=== PATIENT | female | born 1935 | race Caucasian/White ===

== ENCOUNTER → 2018-04-20 | Day surgery (SDC) | payer MEDICARE, BC ==
[~2018-04-20] MED LIST: Lactated Ringers 1,000 ML IV SCH; Propofol 200 MG/20 ML SDV IV ONE
--- NOTE | 2018-04-20 10:39 | OR ---
DATE OF OPERATION: 04/20/2018 PREOPERATIVE DIAGNOSIS: GASTROESOPHAGEAL REFLUX DISEASE. POSTOPERATIVE DIAGNOSIS: GASTROESOPHAGEAL REFLUX DISEASE. SURGEON: Eliceo Colón MD PROCEDURE: EGD WITH BIOPSIES X2, DANYELL. 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 COMPLICATIONS: None. SPECIMEN: 1. Fundal biopsy x2. 2. Antral DANYELL. FINDINGS: 1. Full-length colonoscopy. 2. Chronic fundal gastritis without active inflammation. 3. Mild hiatal hernia with nonobstructing Schatzki's ring. No distal esophagitis. RECOMMENDATIONS: Ongoing medical therapy. INDICATIONS: The patient presented to my office with multiple concerns with one of them being reflux and the fact that she has lower chest burning at times. We elected to proceed with EGD. DESCRIPTION OF PROCEDURE: The patient was prepped and draped, placed in the left lateral decubitus position. A lubricated Olympus gastroscope was inserted over bit and advanced to cricopharyngeus area and easily intubated in the esophagus. The esophageal lining was benign in its entire course. The Z-line was crisp and sharp around 38 cm. There is a mild to maybe moderate hiatal hernia present with spontaneous reflux visualized. The Z-line is crisp and sharp. There was no distal esophagitis, stricturing, ulceration, or Coyle's changes. There is very early and mild nonobstructing Schatzki's ring present. The scope was easily advanced into the stomach through the pylorus and into the second portion of the duodenum. This and the duodenal bulb were completely benign. The scope was brought back into the stomach and retroflexed. The upper fundus and cardia were for the most part unremarkable. The patient's fundus has a chronic gastritis appearance without any active inflammation, ulceration, or erosions. Two biopsies of the fundus were taken. The rest of the distal fundus and antrum were completely unremarkable. CLOtest obtained, air was then suctioned, and scope removed without complication. LOS/NANETTE /[id number]
== END ==
LOC: CC.SDS 08:05
PROVIDERS: ATTEND Family Medicine
DX: K21.9 Gastro-esophageal reflux disease without esophagitis (principal); K29.50 Unspecified chronic gastritis without bleeding; B96.81 Helicobacter pylori [H. pylori] as the cause of diseases classified elsewhere; K22.2 Esophageal obstruction; K44.9 Diaphragmatic hernia without obstruction or gangrene; E78.5 Hyperlipidemia, unspecified; Z79.82 Long term (current) use of aspirin; Z79.899 Other long term (current) drug therapy; Z88.1 Allergy status to other antibiotic agents; Z88.8 Allergy status to other drugs, medicaments and biological substances; Z88.2 Allergy status to sulfonamides; Z88.0 Allergy status to penicillin
CPT/HCPCS: 87081; J2704; J7120